=== PATIENT | male | born 1970 | race Caucasian/White ===

== ENCOUNTER 2022-04-12 10:27 | Day surgery (SDC) | payer OTHER ==
[~2022-04-12] VITALS: Ht 190.5 cm; Wt 115.9 kg
[~2022-04-12 10:27] MED LIST: RINGERS SOLUTION,LACTATED 1,000 ML IV ONE
[2022-04-12] MEDS ORDERED: KETOROLAC TROMETHAMINE 60 MG/2 ML VIAL IM ONE (10:28)
[2022-04-12] MEDS ORDERED: PROPOFOL 1% 20 ML VIAL IVP ONE (10:28)
[2022-04-12] MEDS ORDERED: SUCCINYLCHOLINE CHLORIDE 20 MG/ML 10 ML VIAL IVP ONE (10:28)
[2022-04-12] MEDS ORDERED: LIDOCAINE/PF 2% 5 ML VIAL IM ONE (10:28)
[2022-04-12] MEDS ORDERED: 0.9% SODIUM CHLORIDE 10 ML VIAL IVP ONE (10:28)
[2022-04-12] MEDS ORDERED: HYDROmorphone 2 MG/ML VIAL IVP ONE (10:28)
[2022-04-12] MEDS ORDERED: ONDANSETRON HCL 4 MG/2 ML VIAL IVP ONE (10:28)
[2022-04-12] MEDS ORDERED: MIDAZOLAM HCL 2 MG/2 ML VIAL IVP ONE (10:28)
[2022-04-12] MEDS ORDERED: FentaNYL CITRATE PF 100 MCG/2 ML VIAL IVP ONE (10:28)
[2022-04-12] MEDS ORDERED: EPHEDrine SULFATE 50 MG/ML VIAL IM ONE (10:28)
[2022-04-12 11:08] LABS: COVID AG,FIA SOURCE NASAL SWAB
[2022-04-12] MEDS ORDERED: BUPIVACAINE LIPOSOME/PF 1.3%-13.3MG/ML SUSPENSION 20 ML VIAL INJ ONE (11:30)
[2022-04-12] MEDS ORDERED: MUPIROCIN CALCIUM 2% 22 GM OINTMENT ONE (11:31)
[2022-04-12] MEDS ORDERED: BUPIVACAINE HCL/PF 0.25% 30 ML VIAL ONE (11:31)
[2022-04-12] MEDS ORDERED: SODIUM CL IRRIG SOLN BAG 3,000 ML IRRIG ONE (11:32)
[2022-04-12 11:37] LABS: GLUCOMETER DEV NAME(LOC) SDS.; GLUCOSE,POINT OF CARE 97 MG/DL (70-110)
[2022-04-12] MEDS ORDERED: RINGERS SOLUTION,LACTATED 1,000 ML IV ONE (12:39)
[2022-04-12] MEDS ORDERED: MEPERIDINE-PF 25 MG/ML VIAL IVP PRN (13:15)
[2022-04-12] MEDS ORDERED: FentaNYL CITRATE PF 100 MCG/2 ML VIAL IVP PRN (13:15)
[2022-04-12] MEDS ORDERED: HYDROmorphone 2 MG/ML VIAL IVP PRN (13:15)
[2022-04-12] MEDS ORDERED: FentaNYL CITRATE PF 100 MCG/2 ML VIAL ONE (13:27)
[2022-04-12] MEDS ORDERED: OXYGEN THERAPY IH SCH (20:00)
== END 2022-04-12 15:05 | disposition home or self-care (01) ==
LOC: SURGERY 10:27
PROVIDERS: ATTEND Orthopaedic Surgery
DX: S89.81XA Other specified injuries of right lower leg, initial encounter (principal); M17.11 Unilateral primary osteoarthritis, right knee; S83.281A Other tear of lateral meniscus, current injury, right knee, initial encounter; M65.861 Other synovitis and tenosynovitis, right lower leg; I10 Essential (primary) hypertension; X58.XXXA Exposure to other specified factors, initial encounter; Y93.89 Activity, other specified; Y92.89 Other specified places as the place of occurrence of the external cause; Y99.8 Other external cause status; Z79.899 Other long term (current) drug therapy; Z98.890 Other specified postprocedural states
CPT/HCPCS: 29873; 29876; 29881; 36415; 82962; 87426; C9290; C9803; J0330; J0690; J1170; J1885; J2250; J2405; J2704; J3010; J3490 ×3; J7120